=== PATIENT | male | born 1955 | race Caucasian/White ===

== ENCOUNTER 2025-01-28 12:27 | Outpatient (CLI) | payer MEDICARE, SELFPAY ==
--- NOTE | ~2025-01-28 | CT_ITS ---
Procedure: CT LE LT w con Ordering provider: Sharifa Malik, PSYCHIATRIC SECURITY NURSE History: . FOOT ABSCESS,PUNCTURE WOUND OF FOOT . Comparison: None. Technique: Thin slice axial CT of the No IV contrast was given. Sagittal and coronal reformatted imag es were also obtained and reviewed. 100 mL Omnipaque 350 was given IV. Findings: BONES: No fractures seen. No evidence of osteomyelitis. JOINT SPACES: Normal SOFT TISSUES: Fat stranding is seen in the plantar aspect of the foot. Soft tissue densities are seen opposite the first and fifth metatarsophalangeal joint joint on the plantar aspect with no definite abscess formation seen. Radiopaque foreign body seen in the plantar aspect of the foot posteriorly with adjacent fluid collec tion which measures 8 x 23 x 8 mm suggestive of an abscess. Follow-up advised.. Minimal fat stranding seen posterior to and the lower leg and anterior to the tendo Achilles. IMPRESSION: Highly suggestive of abscess in the posterior plantar aspect of the foot measuring 2.3 x 0.8 x 0.8 cm . Radiopaque foreign bodies seen. Follow-up advised. Fat stranding on the plantar aspect of the foot more prominent in the area of the first and fifth met atarsophalangeal joints. No definite fracture or osteomyelitis seen. Reviewed, dictated and finalized at location A. IMPRESSION: Highly suggestive of abscess in the posterior plantar aspect of the foot measur ing 2.3 x 0.8 x 0.8 cm. Radiopaque foreign bodies seen. Follow-up advised. Fat stranding on the plantar aspect of the foot more prominent in the area of t he first and fifth metatarsophalangeal joints. No definite fracture or osteomyelitis seen.
--- OUTSIDE RECORDS SUMMARY | 2025-01-28 12:33 | XMS_ITS | Encounter Summary ---
Author Organization [facility] Address [address] [place] [address] Care Team Providers Care Emerging Technologies Director Name Role Phone None, Provider MD Primary Care Provider David Omalley NP Primary Care Provider [phone] Encounter Details Date Type Department Care Team (Late st Contact Info) Description 11/05/2023 Pre-Procedure Call Leah's It Director Pre/Post [address] [place] [address] Beba Slade MD [address] [place] [address] Social History Tobacco Use Types Packs/Day Years Used Date Smoking Tobacco: Never Smokeless Tobacco: Never [facility] Utilities Answer Date Recorded In the past 12 months has e electric, gas, oil, or water company threatened to shut off services in your home? No 10/31/2023 Humiliation, Afraid, Rape, and Kick questionnair e Answer Date Recorded Within the last year, have y ou been afraid of your partner or ex-partner? No 10/31/2023 Within the last year, have y ou been humiliated or emotionally abused in other ways by your partner or ex-partner? No Within the last year, have y ou been kicked, hit, slapped, or otherwise physically hurt by your partner or ex-partner? No 10/31/2023 Within the last year, have y ou been raped or forced to have any kind of sexual activity by your partner or ex-partner? No 10/31/2023 Overall Financial Resource Strain (CARDIA) Answe r Date Recorded How hard is it for you to pa y for the very basics like food, housing, medical care, and heating? Not hard at all 10/31/2023 Hunger Vital Sign Answer Date Recorded Within the past 12 months, y ou worried that your food would run out before you got the money to buy more. Never true 10/31/19 24 Within the past 12 months, t he food you bought just didn't last and you didn't have money to get more. Never true 10/31/2023 PRAPARE - Transportation Answer Date Re corded In the past 12 months, has l ack of transportation kept you from medical appointments or from getting medications? No 10/14 In the past 12 months, has l ack of transportation kept you from meetings, work, or from getting things needed for daily living? No 10/31/2023 Housing Stability Vital Sign Answer Beni e Recorded In the last 12 months, was t here a time when you were not able to pay the mortgage or rent on time? No 10/31/2023 In the past 12 months, how m any times have you moved where you were living? 1 10/31/2023 At any time in the past 12 m [facility], were you homeless or living in a chcf (including now)? 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 Answer Date of Assessment Author Status No 10/31/2023 5:57 AM Shannon Samson RN Active * Do you have serious difficulty walking or climbing stairs? Answer Date of Assessment Author Status No 10/31/2023 5:57 AM Shannon Samson RN Active * Do you have difficulty dressing or bathing? Answer Date of Assessment Author Status No 10/31/2023 5:57 AM Shannon Samson RN Active * Because of a physical, mental, or emotional condition, do you have difficulty doing errands alone such as visiting a doctor's office or shopping? Answer Date of Assessment Author Status No 10/31/2023 5:57 AM DEVT Shannon Hewitt RN Active documented as of this encounter Mental Status * Because of a physical, mental, or emotional condition, do you have serious difficulty concentrating, remembering, or making decisions? Answer Entry Date Author Status No 10/31/2023 5:57 AM Shannon Samson RN Active documented in this encounter Plan of Treatment Not on file documented as of this encounter Visit Diagnoses Not on filedocumented in this encounter Care Teams Emerging Technologies Director Relationship Specialty Start Date End Date None, Provider, PCP - General UNKNOWN PHYSICIAN SPECIALTY 10/31/23 David Ryan, CASH CROP FARMER [address] [place] [address] PCP - General NURSE PRACTITIONER 11/07/23 documented as of this encounter
--- OUTSIDE RECORDS SUMMARY | 2025-01-28 12:33 | XMS_ITS | Clinical Summary ---
Author Organization [facility] Address [address] [place] [address] Care Team Providers Care Heel Lining Paster Name Role Phone David Ryan HAZMAT TANKER DRIVER Primary Care Provider [phone] Allergies No known active allergies Medications albuterol sulfate HFA 108 (90 Base) MCG/ACT inhaler Inhale 2 puffs into the lungs every 4 (four) hours as needed for Wheezing or Shortness of breath. 18 g 4 Active tiotropium bromide-olodate rol (STIOLTO RESPIMAT) 2.5-2.5 MCG/ACT inhaler Inhale 2 puffs into the lungs daily. 4 g 4 Active spironolactone (ALDACTONE) 25 MG tablet Take 0.5 tablets (12.5 mg total) by mouth daily. 30 tablet 4 Active furosemide (LASIX) 20 MG tablet Take 1 tablet (20mg) by mouth three times a week, Sunday, Sunday, Sunday 30 tablet 4 Active Additional Information Patient taking differently: 20 mg Oral See admin instructions, Take 1 tablet (20mg) by mouth three times a week, Sunday, Sunday, Sunday, Reported on 11/09/2023 aspirin EC (ECOTRIN) 81 MG tablet Take 1 tablet (81 mg total) by mouth daily. 4 Active carvedilol (COREG) 6.25 MG tablet Take 1 tablet (6.25 mg total) by mouth daily. 60 tablet 11 4 Active losartan (COZAAR) 50 MG tablet Take 0.5 tablets (25 mg total) by mouth daily. 30 tablet 11 4 Active Active Problems Problem Noted Date Diagnosed Date Acute CHF ([facility]) 10/31/2023 Social History Tobacco Use Types Packs/Day Years Used Date Smoking Tobacco: Never Smokeless Tobacco: Never Tobacco Cessation:Counseling Given: Not Answered [facility] Utilities Answer Date Recorded In the past 12 months has th e electric, gas, oil, or water company [...] any time in the past 12 m [facility], were you homeless or living in a prison (including now)? 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 Gender Identity Not on file Sexual Orientation Not on file Last Filed Vital Signs Vital Sign Reading Time Taken Comments Blood Pressure 141/91 11/09/2023 11:09 AM CDT Pulse 89 11/09/2023 11:09 AM CDT Temperature 36.1 C (97 F) 11/09/2023 11:09 AM CDT Respiratory Rate 20 11/09/2023 11:09 AM CDT Oxygen Saturation 96% 11/09/2023 11:09 AM CDT Inhaled Oxygen Concentration - - Weight 84.5 kg (186 lb 4.6 oz) 11/09/2023 10:25 AM CDT Height 175.3 cm (5' 9.02) 11/09/2023 10:25 AM C DT Body Mass Index 27.5 11/09/2023 10:25 AM CDT Plan of Treatment Health Maintenance Due Date Last Done Comments Colorectal Cancer Screening Colonoscopy (10 Years) 1956 Hepatitis C 1974 DTaP, Tdap and Td Vaccines ( 1 - Tdap) 1975 Pneumococcal Vaccine: 50+ Ye ars (1 of 2 - PCV) 1975 Zoster Vaccines (1 of 2) 2006 RSV Immunization or 60+ Years (1 - Risk 60-74 years 1-dose series) 2016 Annual Medicare Wellness Visit 2021 COVID-19 Vaccine (1 - 2023-2 5 season) 2024 Meningococcal B Vaccine Aged Out No l onger eligible based on patient's age to complete this topic Meningococcal Vaccine Aged Out No damion miguel eligible based on patient's age to complete this topic RSV Immunizations Under 20 Months Aged Out No longer eligible based on patient's age to complete this topic Insurance [facility] Advance Directives * Full Code (Latest Code Status on File) Date Activated Date Inactivated Comments 10/31/2023 5:54 AM 10/31/2023 5:40 PM Care Teams Heel Lining Paster Relationship Specialty Start Date End Date David Ryan NP [address] [place] [address] PCP - General NURSE PRACTITIONER 11/07/23
--- OUTSIDE RECORDS SUMMARY | 2025-01-28 12:33 | XMS_ITS | Encounter Summary ---
Author Organization [facility] Address [address] [place] [address] Care Team Providers Care Certified Nurse Midwife Name Role Phone None, Provider MD Primary Care Provider David Omalley NP Primary Care Provider [phone] Encounter Details Date Type Department Care Team (Late st Contact Info) Description 11/05/2023 Hospital Orders Only [employer] Operator Pre/Post [address] [place] [address] Beba Slade MD [address] [place] [address] Social History Tobacco Use Types Packs/Day Years Used Date Smoking Tobacco: Never Smokeless Tobacco: Never [facility] Utilities Answer Date Recorded In the past [...] any time in the past 12 m [facility], were you homeless or living in a intermediate (including now)? 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
--- OUTSIDE RECORDS SUMMARY | 2025-01-28 12:33 | XMS_ITS | Encounter Summary ---
Author Organization [facility] Address [address] [place] [id number] Care Team Providers Care Plaque Maker Name Role Phone None, Provider Primary Care Provider David Omalley PRESS WASHER Primary Care Provider [phone] Encounter Details Date Type Department Care Team (Late st Contact Info) Description 12/21/2018 Abstract [facility]FL CONVERSION [address] [place] [address] , Generic Conversion, Social History Tobacco Use Types Packs/Day Years Used Date Smoking Tobacco: Never Assessed Sex and Gender Information Value Date Recorded Sex Assigned at Not on file 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 Gender Identity Not on file Sexual Orientation Not on file documented as of this encounter Plan of Treatment Not on file documented as of this encounter Visit Diagnoses Not on filedocumented in this encounter Additional Health Concerns Infection Onset Date Last Indicated Resolved Time COVID-19 Rule Out 10/31/2023 10/31/2023 10/31/2023 2:39 AM CDT documented as of this encounter Care Teams Plaque Maker Relationship Specialty Start Date End Date None, Provider, PCP - General UNKNOWN PHYSICIAN SPECIALTY 10/31/23 David yRan, PRESS WASHER [address] [place] [address] PCP - General NURSE PRACTITIONER 11/07/23 documented as of this encounter
== END 2025-01-28 12:28 | disposition home or self-care (01) ==
PROVIDERS: PCP Family Medicine; Visit Provider Nurse Practitioner Family
DX: L02.612 Cutaneous abscess of left foot (principal); X58.XXXA Exposure to other specified factors, initial encounter
CPT/HCPCS: 73701; Q9967